=== PATIENT | female | born 1990 | race Two or more races ===

== ENCOUNTER 2018-02-09 17:28 | Emergency (ER) | payer MEDICAID ==
[~2018-02-09] VITALS: Ht 157.5 cm; Wt 82.1 kg
[2018-02-09 20:29] VITALS: BP 125/78
[2018-02-09] MEDS ORDERED: LIDOCAINE 2% (LOCAL ANESTH.) PF 5ml SDV ONE (21:07)
[2018-02-09] MEDS ORDERED: cefTRIAXone SOD 1,000 MG VL ONE (21:07)
[2018-02-09] MEDS ORDERED: cefTRIAXone 1GM/10ml IVPUSH 10 ML IV ONE (21:15)
== END 2018-02-09 21:15 | disposition home or self-care (01) ==
LOC: ER 17:33
DX: K04.7 Periapical abscess without sinus (principal)
CPT/HCPCS: 96374; 99284; J0696